=== PATIENT | male | born 1970 | race Caucasian/White ===

== ENCOUNTER → 2023-12-14 09:22 | Outpatient (REF) | payer OTHER, SELFPAY | LOC: RAD 09:22 | PROVIDERS: ATTENDING PHYSICIAN Internal Medicine Cardiovascular Disease; FAMILY PHYSICIAN Family Medicine | DX: I25.10 Atherosclerotic heart disease of native coronary artery without angina pectoris (principal) | CPT/HCPCS: 75574; Q9967 ==